=== PATIENT | male | born 1955 | race Caucasian/White ===

== ENCOUNTER → 2018-04-22 | Outpatient (CLI) | payer OTHER ==
[~2018-04-22] VITALS: Ht 180.3 cm; Wt 97.5 kg
[~2018-04-22] MED LIST: ASPIR 8181 MG PO; ATORVASTATIN CA40 MG PO; CELEBREX 200 M200 M1 PO; THERA-M1 EAC1 PO; VITAMINC500 PO
[2018-04-22 08:35] LABS: HEMOGLOBIN 15.2 gm/dL (14.0-18.0); MCH 27.9 pg (26.0-34.0); MCHC 33.8 g/dL (28.0-37.0); MCV 82.4 fL (80.0-100.0); RBC 5.46 mil/uL (4.50-6.00); RDW 13.9 % (10.5-14.5); WBC 6.8 thou/uL (4.0-11.0)
[2018-04-22 08:36] VITALS: BP 123/79
[2018-04-22 08:43] LABS: ANION GAP 7 mmol/L (7-16); BUN 14 mg/dL (7-18); CALCIUM 9.1 mg/dL (8.5-10.1); CHLORIDE 105 mmol/L (98-107); CO2 29 mmol/L (21-32); CREATININE 0.9 mg/dL (0.7-1.3); GLUCOSE 95 mg/dL (74-106); POTASSIUM 4.5 mmol/L (3.5-5.1); SODIUM 141 mmol/L (136-145)
[2018-04-22 08:48] LABS: CHOLESTEROL 188 mg/dL (<200); HDL CHOLESTEROL 56 mg/dL (>40); LDL CHOLESTEROL 113 mg/dL (<100); TC:HDL 3.4 Ratio (Not establshd); TRIGLYCERIDE 96 mg/dL (<150); VLDL 19 mg/dL (<40)
--- NOTE | 2018-04-22 09:25 | EKG ---
[place] [address] [facility] [place] [address] ELECTROCARDIOGRAM REPORT Name: ANTONI MCGRATH [facility]: [facility] CenterIrene[facility] [id number] ������������������ Admission: 04/22/18 ������������������ Attend Phys: Hiro Centeno MD Discharge: ������������������ Date of : 57 Report #: [id number] ����������������������������������������������������������������� [id number] THIS REPORT FOR: //name// [facility] Test Date: 2018-04-22 Test Time: 08:30:52 Pat Name: ANTONI MCGRATH Department: Room: Gender: [employer] Brusher: Higinio CISNEROS : 1955 Requested By: Hiro Centeno Order Number: [id number] MD: Deshaun Bolanos Measurements Intervals [place] Rate: 55 P: -1 [place]: 132 QRS: 10 QRSD: 93 T: 5 QT: 434 QTc: 416 Interpretive Statements Sinus bradycardia No previous ECG available for comparison Electronically Signed On 04-22-2018 9:25:12 [employer]OL [employer] by Deshaun Bolanos [email or web address] ��������������������������������������������� <ELECTRONICALLY SIGNED> ���������������������������������������� By: Deshaun Bolanos MD, [facility] ��������������������������������������������� 04/22/18 0925 0830 0830 Deshaun Bolanos MD, FACC /EPI
--- NOTE | 2018-04-22 12:53 | CATHLAB ---
[facility] [address] [email or web address] [address] INVASIVE PROCEDURE REPORT Name: ALCIDESANTONI GUNTER Room #: [facility] [id number] ������������� Admission: 04/22/18 ������������� Attend Phys: Hiro Centeno MD Discharge: ��� ������������� ��� Date of : 57 Date of Service: 04/22/18 1252 �� Report #: [id number] �������� ��������������������������������������������[id number] THIS REPORT FOR: //name// APPROVED REPORT Study performed: 04/22/2018 10:49:26 Patient Details Patient Status: Out-Patient Room #: The patient is a 62 year-old male Event Personnel Hiro Centeno Suspect Artist, Jayne Parisi, TERRITORY SALES MANAGER MEDICAL Monitor, Jakob Rodriguez RN RN, Tracy Benjamin Scrub Procedures Performed Art Access - R femoral artery* Left Heart Cath w/or w/o Coronaries [id number] [facility] [id number] Initial Mod Sed Same Phys/QHP Gr5y [id number] Hemostasis with Manual pressure Indication Dyspnea, Positive stress test Risk Factors HypercholesterolemiaPhysical Activity, Hypertension Procedure Narrative The Right Groin^ was infiltrated with 1% Lidocaine subcutaneous anesthesia. A PINNACLE 4FR Sheath #[id number] sheath was inserted into the RFA^. Coronary angiography was performed using coronary diagnostic catheters. The right coronary system was accessed and visualized with a 4FR JR 4 #[id number] catheter. The left coronary system was accessed and visualized with a 4FR JL 5.0 #[id number] catheter. The left ventricle was accessed and visualized with a 4FR PIGTAIL 145 ANGLED #[id number] catheter. Left ventricular/Aortic Valve gradient assessed via catheter pullback. Left ventriculogram was performed in 30 degree projection. Hemostasis was obtained with manual pressure following sheath removal without any complications. The patient tolerated the procedure well and there were no complications associated with the procedure. There was no hematoma. Intraoperative Conscious Sedation Sedation start time: 11:17 Case end Time: 11:48 Fentanyl 50 mcg Versed 1 mg [facility] [place] [address] INVASIVE PROCEDURE REPORT Name: ANTONI MCGRATH Room #: REG [facility]#: [id number] ������������� Admission: 04/22/18 ������������� Attend Phys: Hiro Centeno MD Discharge: ��� ������������� ��� Date of : 57 Date of Service: 04/22/18 1252 �� Report #: [id number] �������� ��������������������������������������������[id number] Fluoro Time: 2.45 minutes Dose: DAP 4170.90 cGycm2 487 mGy Contrast Type and Amount: Omnipaque 110 ml Coronary Angiography The patient's coronary anatomy is right dominant. Diagnostic Cath Left Main This is a patent vessel, with no flow-limiting lesions. LAD This is a moderate size caliber vessel, traversing the anterior wall and wrapping around the apex. There is very mild disease in the proximal segment, 10% with mild calcifications. Diagonal 1 This is a moderate size caliber vessel, patent with no flow-limiting lesions. Divides into 2 branches at the mid segment. Diagonal 2 This is a patent vessel, with no flow-limiting lesions. Circumflex This is a patent vessel, with no flow-limiting lesions. OM1 This is a patent vessel, with no flow-limiting lesions. OM2 This is a patent vessel, with no flow-limiting lesions. Right Coronary This is a dominant vessel with mild calcifications in the proximal and mid segment. There is mild diffuse disease in this area, 10%. R PDA This is a small-caliber vessel, with no flow-limiting lesions. RPLV This is a small-caliber vessel, with no flow-limiting lesions. Left Ventriculography The left ventricle is normal in size with normal contractility. The left ventricular ejection fraction is estimated to be 60%. Hemodynamics The aortic pressure is 111/70 mmHg with a mean of 89 mmHg. The left ventricular pressure is 120/2 mmHg with a mean of mmHg. The left ventricular end diastolic pressure is 17 mmHg. Conclusion 1. There is mild disease in the LAD and RCA. 2. Right dominant system. [facility] [address] [place] [address] INVASIVE PROCEDURE REPORT Name: ANTONI MCGRATH Room #: REG [facility]..#: [id number] ������������� Admission: 04/22/18 ������������� Attend Phys: Hiro Centeno MD Discharge: ��� ������������� ��� Date of : 57 Date of Service: 04/22/18 1252 �� Report #: [id number] �������� ��������������������������������������������[id number] 3. Normal LV systolic function. 4. Recommend aggressive risk factor management. ��������������������������������������������� <ELECTRONICALLY SIGNED> ���������������������������������������� By: Hiro Centeno MD ��������������������������������������������� 04/22/18 1252 125 125 Hiro Centeno MD /INF
== END | disposition home or self-care (01) ==
LOC: CATH 07:59
PROVIDERS: Internal Medicine Cardiovascular Disease
DX: I25.10 Atherosclerotic heart disease of native coronary artery without angina pectoris (principal); I10 Essential (primary) hypertension; E78.00 Pure hypercholesterolemia, unspecified; M16.12 Unilateral primary osteoarthritis, left hip; E78.5 Hyperlipidemia, unspecified; Z82.49 Family history of ischemic heart disease and other diseases of the circulatory system; Z79.82 Long term (current) use of aspirin; Z79.899 Other long term (current) drug therapy